=== PATIENT | female | born 1935 | race Caucasian/White ===

== ENCOUNTER 2017-09-02 07:06 | Observation (INO) | payer OTHER ==
[~2017-09-02 07:06] MED LIST: ATROPINE 1 MG/10 ML SYRINGE IV; DIPHENHYDRAMINE 50 MG INJ IV; EPHEDrine SULFATE 50 MG/5 ML SYG IV; FENTAnyl 50 MCG/ML VIAL IV; HYDROmorphONE 1 MG/5 ML IV SYRINGE IV; LABETALOL HCL 20MG INJ IV; MEPERIDINE 25 MG INJ IV; MIDAZOLAM 1 MG/ML 2 ML INJ IV; OXYCODONE/ACETAMINOPHEN (5/325) TAB PO; hydrALAzine 20 MG INJ IV; morphine (1 MG/ML) 10ML SYRINGE IV
[2017-09-02] MEDS: SOD CHLORIDE 0.9% 1,000 ML IV (09:00)
[2017-09-02] MEDS: CEFAZOLIN 2 GM/50 ML (PMX) 50 ML IVPB (09:00)
[2017-09-02 09:11] LABS: ADD MAN DIFF? NO
[2017-09-02 09:14] LABS: BASOPHILS % 0.5 % (0.0-2.0); EOSINOPHILS # 0.3 10^3/ul (0.0-0.5); EOSINOPHILS % 5.7 % (0.0-7.0); HEMOGLOBIN 10.2 g/dl (12.0-16.0); LYMPHOCYTES # 1.4 10^3/ul (0.8-2.9); LYMPHOCYTES % 23.5 % (15.0-51.0); MEAN CORPUSCULAR HEMOGLOBIN 29.2 pg (29.0-33.0); MEAN CORPUSCULAR HGB CONC 32.9 g/dl (32.0-37.0); MEAN CORPUSCULAR VOLUME 88.8 fl (82.0-101.0); MEAN PLATELET VOLUME 10.5 fl (7.4-10.4); MONOCYTE # 0.5 10^3/ul (0.3-0.9); MONOCYTES % 8.3 % (0.0-11.0); NEUTROPHIL # 3.7 10^3/ul (1.6-7.5); NEUTROPHILS % 61.7 % (39.0-77.0); PLATELET COUNT 225 10^3/UL (140-415); RED BLOOD COUNT 3.49 10^6/ul (4.20-5.40); RED CELL DISTRIBUTION WIDTH 15.1 % (11.5-14.5)
[2017-09-02 09:41] LABS: ALANINE AMINOTRANSFERASE 22 IU/L (13-69); ALBUMIN 3.8 g/dl (3.3-4.9); ALBUMIN/GLOBULIN RATIO 1.11; ALKALINE PHOSPHATASE 122 IU/L (42-121); ANION GAP 14 (8-16); ASPARTATE AMINO TRANSFERASE 18 IU/L (15-46); BILIRUBIN,INDIRECT 1.1 mg/dl (0-1.1); BILIRUBIN,TOTAL 1.1 mg/dl (0.2-1.3); CARBON DIOXIDE 28 mmol/L (21-31); CHLORIDE 101 mmol/L (97-110); GLUCOSE 106 mg/dl (70-220); TOTAL PROTEIN 7.2 g/dl (6.1-8.1)
[2017-09-02 09:42] LABS: BLOOD UREA NITROGEN 16 mg/dl (7-20); CALCIUM 9.1 mg/dl (8.4-10.2); CREATININE 0.87 mg/dl (0.44-1.00); INR 1.04; POTASSIUM 4.7 mmol/L (3.5-5.1); PROTIME 13.7 Sec (11.9-14.9); PT RATIO 1.1; SODIUM 138 mmol/L (135-144)
[2017-09-02 09:43] LABS: PARTIAL THROMBOPLASTIN TIME 26.4 Sec (25.0-35.0)
[2017-09-02] MEDS ORDERED: ISOSULFAN BLUE 1% 5 ML INJ SC (10:44)
[2017-09-02] MEDS ORDERED: MIDAZOLAM 1 MG/ML 2 ML INJ (10:51)
[2017-09-02] MEDS ORDERED: ROCURONIUM 50 MG INJ (10:51)
[2017-09-02] MEDS ORDERED: PROPOFOL 20 ML (10:51)
[2017-09-02] MEDS ORDERED: LIDOCAINE 2% (SDV) 5 ML INJ (10:51)
[2017-09-02] MEDS ORDERED: GLYCOPYRROLATE 0.4 MG INJ (10:51)
[2017-09-02] MEDS ORDERED: NEOSTIGMINE 3 MG/3 ML SYRINGE (10:51)
[2017-09-02] MEDS ORDERED: FENTAnyl 50 MCG/ML VIAL (10:51)
[2017-09-02] MEDS ORDERED: DEXAMETHASONE 4 MG/ML 1 ML INJ (10:53)
[2017-09-02] MEDS ORDERED: ONDANSETRON 4 MG INJ (10:53)
[2017-09-02] MEDS ORDERED: SUCCINYLCHOLINE CHLORIDE 100 MG/5 ML SYG IV (10:54)
[2017-09-02] MEDS ORDERED: CEFAZOLIN 1 GM INJ (10:55)
[2017-09-02] MEDS: ISOSULFAN BLUE 1% 5 ML INJ SC (11:32)
[2017-09-02] MEDS ORDERED: LIDOCAINE 4% CR (12:00)
[2017-09-02] MEDS ORDERED: ACETAMINOPHEN 1000MG/100ML IV 100 ML IVPB (13:30)
[2017-09-02] MEDS ORDERED: ONDANSETRON 4 MG INJ IV (13:30)
[2017-09-02] MEDS: ONDANSETRON 4 MG INJ IV (13:53)
[2017-09-02] MEDS: HYDROmorphONE 1 MG/5 ML IV SYRINGE IV (13:54)
[2017-09-02] MEDS: morphine 2 MG INJ IV ×2 (15:07→23:51)
[2017-09-02] MEDS: D5W-0.45 NACL + KCL 20 MEQ 1,000 ML IV ×3 (17:05→21:18)
[2017-09-02] MEDS: ATORVASTATIN 40 MG TAB PO (21:03)
[2017-09-03] MEDS: D5W-0.45 NACL + KCL 20 MEQ 1,000 ML IV (05:32)
[2017-09-03] MEDS: PANTOPRAZOLE (EC) 40 MG TAB PO (05:32)
[2017-09-03 05:47] LABS: CHOL/HDL RATIO 2.3 RATIO; HDL CHOLESTEROL 50 mg/dl (33-92); LDL CHOLESTEROL,CALCULATED 59 mg/dl; TRIGLYCERIDES 42 mg/dl (0-149)
[2017-09-03 05:47] LABS: CHOLESTEROL 117 mg/dl (100-200)
[2017-09-03] MEDS: morphine 2 MG INJ IV (06:12)
[2017-09-03] MEDS: SPIRONOLACTONE 25 MG TAB PO (09:02)
== END 2017-09-03 14:39 | disposition home or self-care (01) ==
LOC: SDS 07:06 → MS1 14:14 → SDS 14:42 → MS1 13:05
DX: C50.912 Malignant neoplasm of unspecified site of left female breast (principal); Z17.0 Estrogen receptor positive status [ER+]; I11.0 Hypertensive heart disease with heart failure; I50.9 Heart failure, unspecified; E78.5 Hyperlipidemia, unspecified; K21.9 Gastro-esophageal reflux disease without esophagitis
CPT/HCPCS: 19301; 71045; 80053; 80061; 85025; 85610; 85730; 88305; 88342; 93005